=== PATIENT | male | born 1940 | race Caucasian/White ===

== ENCOUNTER 2025-06-21 10:27 | Day surgery (SDC) | payer MEDICARE ==
[2025-06-21] MEDS ORDERED: Propofol 200 MG/20 ML SDV ONE (10:31)
[2025-06-21] MEDS ORDERED: fentaNYL 50 MCG/ML SDV ONE (10:31)
[2025-06-21] MEDS: Lactated Ringers 1,000 ML IV SCH (11:11)
== END 2025-06-21 13:00 | disposition home or self-care (01) ==
LOC: JP.SDS 10:27
PROVIDERS: ATTEND Surgery
DX: D12.3 Benign neoplasm of transverse colon (principal); D12.4 Benign neoplasm of descending colon; K57.30 Diverticulosis of large intestine without perforation or abscess without bleeding; I10 Essential (primary) hypertension; E11.9 Type 2 diabetes mellitus without complications; E66.9 Obesity, unspecified; Z88.8 Allergy status to other drugs, medicaments and biological substances
CPT/HCPCS: 00811; 45380; 45385; 88305; J2704; J3010; J7120